=== PATIENT | female | born 1970 | race Caucasian/White ===

== ENCOUNTER 2018-01-22 17:55 | Emergency (ER) | payer MEDICAID ==
[~2018-01-22] VITALS: Ht 162.6 cm; Wt 99.8 kg
[~2018-01-22 17:55] MED LIST: ACCUNEB SO1.25 MG/1 INH; ALBUTEROL2.5 MG/0.5 INH; ALDACTONE25 MG PO; ASPIR 8181 MG PO; BACTRIM DS TAB1 EACH PO; BUSPIRONE HCL10 MG PO; CARDIZEM CD 30300 M1 PO; CARDIZEM CD180 MG PO; CARISOPRODOL 3350 MG PO; CIPRO500 MG PO; COREG6.25 MG PO; FLEXERIL PO; HUMULINR100 SUBQ; HYDROXYZINE HCL25 M1 PO; HYDROXYZINE HCL25 M2 PO; INSULIN SUPPLIES; IRON325 PO; KEFLEX500 M1 PO; LASIX 40 MG TAB40 M2 PO; LASIX 80 MG TAB80 MG PO; LEVEMIR SUBQ; LEXAPRO20 MG PO; LIDOPATCH1 EACH TOP; LIPITOR 20 MG T20 M1 PO; LISINOPRIL20 MG PO; LOPRESSOR25 PO; LOPRESSOR50 PO; METFORMIN HCL500 MG PO; METOLAZONE 5 MG5 MG PO; NEURONTIN 300300 M1 PO; NEURONTIN 300M300 M2 PO; NORVASC10 MG PO; NOVOLIN N100 UNIT/3 SUBQ; PACERONE 200 M200 M1 PO; POTASSIUM20 PO; PREDNISONE 10 M10 MG PO; ROBITUSSIN100 MG/53 PO; TOPAMAX 100 MG100 MG PO; TOPROL XL50 MG PO; TRAZODONE HCL50 MG PO; XANAX1 MG PO; XARELTO20 MG PO
[2018-01-22 18:25] LABS: ABSOLUTE BASOPHILS 0.1 thou/uL (0.0-0.2); ABSOLUTE EOSINOPHILS 0.1 thou/uL (0.0-0.7); ABSOLUTE LYMPHOCYTES 2.2 thou/uL (0.8-5.3); ABSOLUTE MONOCYTES 0.6 thou/uL (0.0-1.2); ABSOLUTE NEUTROPHILS 7.4 thou/uL (1.6-8.1); BASOPHILS 0.9 %; EOSINOPHILS 0.7 %; HEMATOCRIT 44.4 % (37.0-47.0); HEMOGLOBIN 14.3 gm/dL (12.0-15.0); MCH 30.3 pg (26.0-34.0); MCHC 32.2 g/dL (28.0-37.0); MONOCYTES 5.4 %; NUCLEATED RBCS 0 /100WBC; PLATELET COUNT* 314 thou/uL (150-400); RBC 4.72 mil/uL (4.20-5.00); WBC 10.3 thou/uL (4.0-11.0)
[2018-01-22 18:29] LABS: ANION GAP 9 mmol/L (7-16); BUN 14 mg/dL (7-18); CHLORIDE 99 mmol/L (98-107); CO2 28 mmol/L (21-32); GLUCOSE 307 mg/dL (70-99); POTASSIUM 4.3 mmol/L (3.5-5.1); SODIUM 136 mmol/L (136-145)
[2018-01-22 18:40] LABS: ALBUMIN 3.3 g/dL (3.4-5.0); ALKALINE PHOSPHATASE 117 U/L (46-116); MAGNESIUM 1.7 mg/dL (1.8-2.4); NT-PRO BRAIN NAT PEPTIDE 3604 pg/mL (<300); SGOT 33 U/L (15-37); SGPT 35 U/L (30-65); TOTAL BILIRUBIN 0.5 mg/dL (<0.1-1.0); TOTAL PROTEIN 7.5 g/dL (6.4-8.2); TROPONIN-I LEVEL <0.06 ng/mL (<0.06)
[2018-01-22] MEDS ORDERED: LEVEMIR100 UNIT/1 SUBQ (19:43)
[2018-01-22] MEDS ORDERED: XANAX1 MG PO (19:45)
[2018-01-22] MEDS ORDERED: LISINOPRIL20 MG PO (19:46)
[2018-01-22] MEDS ORDERED: VENTOLIN HFA 1818 GM INH (20:37)
[2018-01-22] MEDS ORDERED: LASIX 20 MG TAB20 MG PO (20:37)
[2018-01-22] MEDS ORDERED: POTASSIUM20 PO (20:38)
[2018-01-22 20:55] VITALS: BP 150/81
--- NOTE | 2018-01-23 17:24 | EKG ---
[place] [address] ELECTROCARDIOGRAM REPORT Name: CROW CUEVAS Room: [facility]#: [id number] Admission: 01/22/18 Attend Phys: Discharge: 01/22/18 Date of : 68 Report #: [id number] THIS REPORT FOR: //name// [facility] ED Test Date: 2018-01-22 Test Time: 18:00:18 Pat Name: CROW CUEVAS Department: Room: Gender: F Sprue Knocker: [place] : 1970 Requested By: Benito العلي Order Number: [id number] MD: Darryl Vang Measurements Intervals [place] Rate: 89 P: 51 VT: 158 QRS: -30 QRSD: 98 T: 122 QT: 401 QTc: 488 Interpretive Statements Sinus rhythm Left axis deviation Abnormal R-wave progression, late transition Nonspecific T abnormalities, lateral leads Borderline prolonged QT interval Compared to ECG 08/20/2017 08:43:37 Atrial fibrillation no longer present Possible ischemia no longer present T-wave abnormality still present Electronically Signed On 01-23-2018 17:24:07 REPEATER CHIEF by Darryl Vang [email or web address] <ELECTRONICALLY SIGNED> By: Darryl Vang MD, [facility] 01/23/18 1724 1800 1800 Darryl Vang MD, [facility] /EPI
== END 2018-01-22 21:13 | disposition home or self-care (01) ==
LOC: M.ERS 17:55
PROVIDERS: Physician Assistant
DX: J06.9 Acute upper respiratory infection, unspecified (principal); R10.13 Epigastric pain; I11.0 Hypertensive heart disease with heart failure; I50.9 Heart failure, unspecified; F41.9 Anxiety disorder, unspecified; F32.9 Major depressive disorder, single episode, unspecified; E11.9 Type 2 diabetes mellitus without complications; F17.210 Nicotine dependence, cigarettes, uncomplicated; Z79.4 Long term (current) use of insulin

== ENCOUNTER → 2018-06-09 | Outpatient (CLI) | payer MEDICAID ==
[~2018-06-09] MED LIST changes: +LASIX 20 MG TAB20 MG PO; +LEVEMIR100 UNIT/1 SUBQ; +VENTOLIN HFA 1818 GM INH
[2018-06-09 15:03] LABS: ALBUMIN 3.4 g/dL (3.4-5.0); ALKALINE PHOSPHATASE 135 U/L (46-116); ANION GAP 4 mmol/L (7-16); BUN 12 mg/dL (7-18); CALCIUM 9.1 mg/dL (8.5-10.1); CHLORIDE 103 mmol/L (98-107); CHOLESTEROL 160 mg/dL (<200); CO2 33 mmol/L (21-32); CREATININE 0.9 mg/dL (0.6-1.3); GLUCOSE 124 mg/dL (70-99); HDL CHOLESTEROL 55 mg/dL (>40); LDL CHOLESTEROL 81 mg/dL (<100); POTASSIUM 4.1 mmol/L (3.5-5.1); SGOT 14 U/L (15-37); SGPT 20 U/L (30-65); SODIUM 140 mmol/L (136-145); TC:HDL 2.9 Ratio (Not establshd); TOTAL BILIRUBIN 0.6 mg/dL (<0.1-1.0); TOTAL PROTEIN 7.6 g/dL (6.4-8.2); TRIGLYCERIDE 121 mg/dL (<150); VLDL 24 mg/dL (<40)
[2018-06-09 15:06] LABS: SERUM ASSESSMENT Clear
--- NOTE | 2018-06-09 17:48 | 2DMMODE ---
[place] [address] 2 D/M-MODE ECHOCARDIOGRAM Name: CROW CUEVAS Room: [facility]#: [id number] Admission: 06/09/18 Attend Phys: Mikaela Oakes, Discharge: Date of : 68 Date of Service: 06/09/18 1747 Report #: [id number] THIS REPORT FOR: //name// APPROVED REPORT Study performed: 06/09/2018 15:12:12 EXAM: Comprehensive 2D, Doppler, and color-flow Echocardiogram Patient Location: Out-Patient Status: routine BSA: 2.11 HR: 65 bpm BP: 131/86 mmHg Other Information Study Quality: Good Indications Congestive Heart Failure Atrial Fibrillation Cardiomyopathy 2D Dimensions LVEF(%): 62.69 (>50%) IVSd: 13.04 (7-11mm) LVOT Diam: 20.87 (18-24mm) LVDd: 51.21 mm PWd: 11.70 (7-11mm) Ascending Ao: 30.73 (22-36mm) LVDs: 33.76 (25-40mm) Aortic Root: 27.54 mm Gan's LVEF: 62.69 % Volumes Left Atrial Volume (Systole) LA ESV Index: 28.20 mL/m2 Aortic Valve AoV Peak Deng.: 1.31 m/s AO Peak Gr.: 6.84 mmHg LVOT Max P.65 mmHg AO Mean Gr.: 3.92 mmHg LVOT Mean P.23 mmHg LVOT Max V: 0.81 m/s AO V2 VTI: 22.77 cm LVOT Mean V: 0.50 m/s CAL (VTI): 2.35 cm2 LVOT V1 VTI: 15.[place] [address] 2 D/M-MODE ECHOCARDIOGRAM Name: CROW CUEVAS Room: [facility]#: [id number] Admission: 06/09/18 Attend Phys: Mikaela Oakes, Discharge: Date of : 68 Date of Service: 06/09/18 1747 Report #: [id number] E/A Ratio: 3.96 MV Decel. Time: 145.04 ms MV E Max Deng.: 1.00 m/s MV PHT: 42.06 ms MVA (PHT): 5.23 cm2 TDI E/Lateral E': 12.50 E/Medial E': 16.67 Medial E' Deng.: 0.06 m/s Lateral E' Deng.: 0.08 m/s Pulmonary Valve PV Peak Deng.: 0.97 m/s PV Peak Gr.: 3.80 mmHg Tricuspid Valve RAP Estimate: 5.00 mmHg TR Peak Gr.: 41.12 mmHg RVSP: 46.12 mmHg PA Pressure: 46.12 mmHg Left Ventricle The left ventricle is normal size. There is mild to moderate global hypokinesis. Moderate concentric left ventricular hypertrophy. Left ventricular systolic function is mild to moderately decreased. LVEF is 40-45%. Transmitral Doppler flow pattern suggests restrictive physiology. Right Ventricle The right ventricle is normal size. The right ventricular systolic function is normal. Atria Left atrium is moderately dilated. Right atrium is moderately dilated. Aortic Valve The aortic valve is normal in structure. No aortic regurgitation is present. There is no aortic valvular stenosis. Mitral Valve The mitral valve is normal in structure. Mild mitral regurgitation. No evidence of mitral valve stenosis. Tricuspid Valve The tricuspid valve is normal in structure. Mild to moderate tricuspid regurgitation. The RVSP is >60 [place] [address] 2 D/M-MODE ECHOCARDIOGRAM Name: CROW CUEVAS Room: [facility]#: [id number] Admission: 06/09/18 Attend Phys: Mikaela Oakes, Discharge: Date of : 68 Date of Service: 06/09/18 1747 Report #: [id number] Pulmonic Valve The pulmonary valve is normal in structure. There is no pulmonic valvular regurgitation. Great Vessels The aortic root is normal in size. IVC is dilated and collapses <50% with inspiration. Pericardium There is no pericardial effusion. <Conclusion> The left ventricle is normal size. Moderate concentric left ventricular hypertrophy. Left ventricular systolic function is mild to moderately decreased. LVEF is 40-45%. Transmitral Doppler flow pattern suggests restrictive physiology. Left atrium is moderately dilated. Right atrium is moderately dilated. Mild to moderate tricuspid regurgitation. The RVSP is >60 mmHg. <ELECTRONICALLY SIGNED> By: Ildefonso Godinez MD, FACC 06/09/181746 46 46 Ildefonso Godinez MD, FACC /INF
== END ==
LOC: M.CRD 14:31
PROVIDERS: Nurse Practitioner
DX: I08.1 Rheumatic disorders of both mitral and tricuspid valves (principal); I48.0 Paroxysmal atrial fibrillation; I50.9 Heart failure, unspecified; I42.8 Other cardiomyopathies; E78.00 Pure hypercholesterolemia, unspecified

== ENCOUNTER → 2019-02-18 | Outpatient (CLI) | payer OTHER, MEDICAID ==
[2019-02-18 15:37] LABS: ALBUMIN 3.4 g/dL (3.4-5.0); DIRECT BILIRUBIN 0.1 mg/dL (<0.1-0.3); TOTAL BILIRUBIN 0.1 mg/dL (<0.1-1.0)
== END ==
LOC: M.RAD 14:23 → M.LAB 14:23
PROVIDERS: Internal Medicine Cardiovascular Disease
DX: I48.0 Paroxysmal atrial fibrillation (principal); I11.0 Hypertensive heart disease with heart failure; E11.9 Type 2 diabetes mellitus without complications; Z79.899 Other long term (current) drug therapy; Z87.891 Personal history of nicotine dependence; Z79.4 Long term (current) use of insulin